=== PATIENT | male | born 2000 | race Caucasian/White ===

== ENCOUNTER 2018-01-10 17:38 | Emergency (ER) | payer SELFPAY ==
--- NOTE | 2018-01-10 17:46 | EDPHY ---
H & P Time Seen by Provider: 01/10/18 17:55 HPI/ROS: CHIEF COMPLAINT: Alcohol intoxication HISTORY OF PRESENT ILLNESS: Patient is a 17-year-old male who presents emergency department with alcohol intoxication. The patient walked into a [employer] and laid down. It is reported that he drank heavily. There is no reported trauma. Patient does not have any specific complaints. REVIEW OF SYSTEMS: Unable to obtain due the patient's altered mental status Past Medical/Surgical History: Unknown Past surgical history: Unknown Social history: Unknown but reported alcohol use Smoking Status: Never smoked Physical Exam: Vitals noted GENERAL: Intoxicated appearing, somnolent. HEENT: Eyes normal to inspection, normal pharynx, no signs of dehydration. Protecting his airway. NECK: No thyromegaly, no lymphadenopathy, supple. RESPIRATORY: Clear to auscultation bilaterally, no rales, rhonchi or wheezing. CVS: Regular rate and rhythm, no rubs, murmurs, or gallops. Chest wall: The patient has an abrasion on his sternum. ABDOMEN: Soft, nontender, nondistended, no organomegaly. BACK: Normal to inspection, no CVA tenderness. SKIN: Normal color, no rash, warm, dry. No pallor. EXTREMITIES: No pedal edema, no calf tenderness, no Homans sign or cords, no joint swelling. NEURO/PSYCH: Intoxicated appearing. Moves all extremities. Constitutional: Initial Vital Signs Temperature (C) 36.7 C 01/10/18 17:48 Heart Rate 92 01/10/18 17:48 Respiratory Rate 16 01/10/18 17:48 Blood Pressure 125/68 H 01/10/18 17:48 O2 Sat (%) 95 01/10/18 17:48 O2 Delivery Mode Room Air Allergies/Adverse Reactions: No Known Allergies Allergy (Unverified 04/14/16 01:11) Home Medications: Medication Instructions Recorded NK [No Known Home Meds] 04/14/16 Oxycodone-Acetaminophen 5-325 04/14/16 Medical Decision Making ED Course/Re-evaluation: In the emergency department I discussed possible etiologies with the patient's father who came to the emergency department. The patient was observed until he metabolized alcohol. I do not feel the patient needs imaging at this time. I rechecked the patient on numerous occasions. He was stable throughout his stay. He was able to ambulate without difficulty. Father felt comfortable taking him home. They are given warnings prior to leaving. He will return with worsening symptoms. Differential Diagnosis: My differential includes but is not limited to alcohol intoxication, drug abuse , subarachnoid hemorrhage, subdural hematoma, epidural hematoma skull fracture, electrolyte abnormality, sugar abnormality - Data Points Medications Given: Discontinued Medications Sodium Chloride (Ns) 1,000 mls @ 3,000 mls/hr IV ONCE ONE Stop: 01/10/18 18:19 Last Admin: 01/10/18 18:24 Dose: 1,000 mls Ondansetron HCl (Zofran) 4 mg IVP EDNOW ONE Stop: 01/10/18 17:53 Last Admin: 01/10/18 18:00 Dose: 4 mg Departure - Departure Disposition: Home, Routine, Self-Care Clinical Impression: Alcoholic intoxication Condition: Good Instructions: Alcohol Intoxication (ED) Referrals: [facility],. [Clinic] - 2-3 days, if not improved
[2018-01-10 17:50] VITALS: O2SAT 95
[2018-01-10] MEDS ORDERED: ONDANSETRON 4 MG/2 ML VIAL IVP ONE (17:52)
[2018-01-10] MEDS ORDERED: NS 1,000 ML IV ONE (18:00)
[2018-01-10 20:05] VITALS: BP 112/68; PULSE 85; RESP 18; TEMP 97.9
== END 2018-01-10 20:04 | disposition home or self-care (01) ==
LOC: EDUNIT#
DX: F10.129 Alcohol abuse with intoxication, unspecified (principal)
CPT/HCPCS: 96374; J2405